=== PATIENT | female | born 1990 | race Caucasian/White ===

== ENCOUNTER 2019-08-13 09:09 | Emergency (ER) | payer OTHER, MEDICAID, SELFPAY ==
[2019-08-13 09:28] VITALS: BP 121/78; PULSE 87; RESP 16; TEMP 36.6; O2SAT 99
--- NOTE | 2019-08-13 10:05 | PC.NURSE ---
Pt reports concern over change in hormone levels. Suspects hormones to be cause of overwhelming anxiety.
--- NOTE | 2019-08-13 10:44 | ED.MEDCLEAR ---
HPI - Medical Clearance General Chief complaint: Medical Clearance Stated complaint: SI Time Seen by Provider: 08/13/19 10:37 History of Present Illness HPI Narrative: Patient is a 28-year-old female who presents with suicidal ideation over the past few days. Patient reports having a uterine ablation approximately 3 weeks ago and states I feel like I have been on an emotional roller coaster since . Patient reports going to [facility] office today for follow-up and was sent to the emergency department for SI. Patient reports she takes Xanax for anxiety. She reports she was on antidepressant, but she does not remember which one and she stopped taking approximately 6 months ago. She reports she has a appointment with PCP tomorrow to talk about restarting antidepressant, but has had thoughts of harming herself for the past few days. Patient denies plan to harm self. Patient reports a family history of suicide and reports her father committed suicide approximately 1 year ago, and her brother committed suicide 2 years ago. MD complaint: medical clearance requested and other (Suidical Ideation) Related Information Home Medications Medication Instructions Recorded Confirmed amitriptyline 25 mg PO DAILY 08/13/19 08/13/19 Allergies Allergy/AdvReac Type Severity Reaction Status Date / Time codeine Allergy Unknown HIVES, Verified 08/13/19 09:43 VOMITING hydrocodone Allergy Unknown HIVES, Verified 08/13/19 09:43 VOMITING Review of Systems Review of Systems: Narrative: CONSTITUTIONAL: Denies fever, chills, or sweats. EYES: Denies visual changes, redness, or discharge. ENT: Denies rhinorrhea, congestion, sore throat, or otalgia. CARDIOVASCULAR: Denies chest pain, palpitations, or edema. RESPIRATORY: Denies cough or dyspnea. GASTROINTESTINAL: Denies abdominal pain, nausea, vomiting, or diarrhea. GENITOURINARY: Denies dysuria or hematuria. SKIN: Denies rash or itching. MUSCULOSKELETAL: Denies back pain, joint pain, or myalgia. NEUROLOGIC: Denies headache, numbness, dizziness, or weakness. PSYCHIATRIC: Reports anxiety and depression. Reports suicidal thoughts over the past few days. [facility] Past Medical History Medical History (Updated 08/13/19 @ 14:44 by SYLVIA Vera) Anxiety (Acute) Depression (Acute) Migraines (Acute) Suicide attempt (Acute) Surgical History Surgical History (Updated 08/13/19 @ 10:52 by SYLVIA Vera) H/O tubal ligation (Acute) H/O: (Acute) Family History Family History (Updated 08/13/19 @ 10:54 by SYLVIA Vera) Father Suicide Sibling Suicide Social History Social History (Updated 08/13/19 @ 10:55 by SYLVIA Vera) Smoking status: Never smoker Alcohol intake: current Alcohol use details: socially Substance use: current Substance use type: marijuana Other substance usage details: Patient reports medical marijuana use Living arrangements: with family Gender identity (if verbalized by the patient): Female Exam Narrative: Exam Narrative: GENERAL: Well-appearing, well-nourished, and in no acute distress. HEAD: Normocephalic, atraumatic. EYES: EOMI. No redness or drainage. Conjunctiva are normal. ENT: Mucous membranes pink and moist. Nares clear. No rhinorrhea. TMs normal bilaterally. Throat normal. Uvula midline. NECK: AROM. Supple. No lymphadenopathy. CHEST: No respiratory distress. Clear to auscultation. HEART: Regular rate and rhythm. No murmur appreciated. Normal peripheral pulses. GI: Soft, nontender without rebound, or guarding. No distention. Bowel sounds normal in all quadrants. MUSCULOSKELETAL: No bony tenderness. EXTREMITIES: Normal range of motion. No edema. SKIN: Warm, dry, no rash. NEURO: No focal deficits. Alert and oriented x3. Gait steady. PSYCH: Normal affect. Mildly anxious, depression expressed, no active plan for suicide Course Course Emergency Course: Patient is medically cleared to be se
[2019-08-13 10:51] LABS: Alanine Aminotransferase 18 U/L (4-35); Albumin Level 4.7 g/dL (3.5-5.1); Alkaline Phosphatase 58 U/L (38-126); Aspartate Amino Transferase 25 U/L (14-36); Bilirubin,Total 0.6 mg/dL (0.2-1.3); Blood Urea Nitrogen 8 mg/dL (7-17); Calcium 9.5 mg/dL (8.4-10.2); Carbon Dioxide 29 mmol/L (22-30); Chloride 102 mmol/L (98-107); Estimated CRCL calculation 79 ml/min; Estimated Glomerular Filt Rate > 60; Glucose 96 mg/dL (65-105); Potassium 4.3 mmol/L (3.4-5.0); Sodium 140 mmol/L (137-145)
[2019-08-13 10:54] LABS: Ethanol < 10 mg/dL (<10)
[2019-08-13 11:25] LABS: Basophils Percent Auto 0.2 % (0.2-1.2); Eosinophils Absolute Auto 0.2 K/mm3 (0-0.3); Eosinophils Percent Auto 3.7 % (0-4.4); Hematocrit 41.1 % (37.0-47.0); Hemoglobin 14.5 g/dL (12.0-15.0); Lymphocytes Absolute Auto 1.39 K/mm3 (0.9-3.2); Lymphocytes Percent Auto 31.9 % (18.3-44.2); Mean Corpuscular HGB Conc 35.3 g/dl (32-36); Mean Corpuscular Hemoglobin 32.4 pg (26-34); Mean Corpuscular Volume 91.7 fl (80-100); Mean Platelet Volume 10.8 fl (7.4-10.4); Monocytes Absolute Auto 0.3 K/mm3 (0.1-0.6); Neutrophils Absolute Auto 2.5 K/mm3 (1.3-6.7); Neutrophils Percent Auto 58.2 % (45.5-73.1); Platelet Count Result 315 k/mm3 (150-375); Red Blood Count 4.48 M/mm3 (4.2-5.4); Red Cell Distribution Width 11.7 % (11.5-14.5); White Blood Count 4.4 K/mm3 (4.5-10.0)
[2019-08-13 11:43] LABS: Add Urine Microscopic? YES; Amphetamine Screen Urine Negative (Negative); Appearance Urine Turbid (Clear); Bacteria Urine Trace /hpf; Barbiturate Screen Urine Negative (Negative); Benzodiazepines Screen Urine Negative (Negative); Bilirubin Urine Negative (Negative); Blood Urine 1+ (Negative); Cannabinoid Screen Urine Positive (Negative); Cocaine Screen Urine Negative (Negative); Color Urine Red (Yellow); Glucose Urine UA Negative (Negative); Ketones Urine Negative (Negative); Leukocyte Esterase Ur Negative LEU/UL (Negative); Methadone Screen Urine Negative (Negative); Mucus Urine Heavy /lpf; Nitrate Urine Negative (Negative); Opiate Screen Urine Negative (Negative); Phencyclidine Screen Urine Negative (Negative); Protein Urine Negative (Negative); RBC Urine 0-2 /hpf (0-2); Specific Grav Ur 1.023 (1.001-1.035); Squamous Epithelial Cell Urine Many /hpf (Few); Urobilinogen Urine Negative mg/dL (<2.0); WBC Urine 0-3
--- NOTE | 2019-08-13 13:48 | PC.NURSE ---
Enginehouse Brakeman arash Summerfield in room with pt.
[2019-08-13 15:14] VITALS: BP 106/79; PULSE 90; RESP 16; TEMP 37.2; O2SAT 100
== END 2019-08-13 15:17 | disposition home or self-care (01) ==
PROVIDERS: Emergency Medicine; Emergency Provider Nurse Practitioner; PCP Nurse Practitioner Family
DX: F41.9 Anxiety disorder, unspecified (principal); F32.9 Major depressive disorder, single episode, unspecified
CPT/HCPCS: 36415; 80053; 80307; 81001; 81025; 84443; 85025; 99284

== ENCOUNTER 2020-04-21 10:25 | Emergency (ER) | payer OTHER, MEDICAID, SELFPAY ==
[2020-04-21 10:32] VITALS: BP 119/78; PULSE 81; RESP 16; TEMP 36.4; O2SAT 98
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
== END 2020-04-21 11:23 | disposition home or self-care (01) ==
PROVIDERS: Emergency Provider Nurse Practitioner Family; PCP Nurse Practitioner Family
DX: S91.011A Laceration without foreign body, right ankle, initial encounter (principal); W22.8XXA Striking against or struck by other objects, initial encounter
CPT/HCPCS: 12002; 99212; G0463

== ENCOUNTER 2020-05-27 16:25 | Emergency (ER) | payer OTHER, MEDICAID, SELFPAY ==
[2020-05-27 17:20] VITALS: BP 125/80; PULSE 101; RESP 16; TEMP 36.6; O2SAT 100
[2020-05-27 17:34] LABS: Basophils Absolute Auto 0.1 K/mm3 (0.0-0.1); Basophils Percent Auto 0.7 % (0.2-1.2); Eosinophils Absolute Auto 0.5 K/mm3 (0-0.3); Eosinophils Percent Auto 6.5 % (0-4.4); Hematocrit 39.8 % (37.0-47.0); Hemoglobin 14.1 g/dL (12.0-15.0); Immature Granulocyte Absolute 0.01 K/mm3 (0.00-0.031); Immature Granulocyte Percent A 0.1 % (0-0.5); Lymphocytes Absolute Auto 2.11 K/mm3 (0.9-3.2); Lymphocytes Percent Auto 29.1 % (18.3-44.2); Mean Corpuscular HGB Conc 35.4 g/dl (32-36); Mean Corpuscular Hemoglobin 32.8 pg (26-34); Mean Corpuscular Volume 92.6 fl (80-100); Mean Platelet Volume 10.3 fl (7.4-10.4); Monocytes Absolute Auto 0.4 K/mm3 (0.1-0.6); Monocytes Percent Auto 5.7 % (2.6-8.5); Neutrophils Absolute Auto 4.2 K/mm3 (1.3-6.7); Neutrophils Percent Auto 57.9 % (45.5-73.1); Platelet Count Result 263 k/mm3 (150-375); Red Cell Distribution Width 11.7 % (11.5-14.5); White Blood Count 7.2 K/mm3 (4.5-10.0)
[2020-05-27 17:36] LABS: Add Urine Microscopic? NO; Appearance Urine Clear (Clear); Bilirubin Urine Negative (Negative); Blood Urine Negative (Negative); Color Urine Yellow (Yellow); Glucose Urine UA Negative (Negative); Ketones Urine Negative (Negative); Leukocyte Esterase Ur Negative LEU/UL (Negative); Nitrate Urine Negative (Negative); Protein Urine Negative (Negative); Urobilinogen Urine Negative mg/dL (<2.0)
[2020-05-27 17:40] LABS: Specific Grav Ur 1.033 (1.001-1.035)
[2020-05-27 17:48] LABS: Alanine Aminotransferase 22 U/L (4-35); Albumin Level 4.2 g/dL (3.5-5.1); Alkaline Phosphatase 64 U/L (38-126); Anion Gap 8 mmol/L (8-16); Aspartate Amino Transferase 28 U/L (14-36); Bilirubin,Total 0.2 mg/dL (0.2-1.3); Blood Urea Nitrogen 12 mg/dL (7-17); Calcium 8.6 mg/dL (8.4-10.2); Carbon Dioxide 24 mmol/L (22-30); Chloride 106 mmol/L (98-107); Estimated CRCL calculation 78 ml/min; Estimated Glomerular Filt Rate > 60; Glucose 149 mg/dL (65-105); Lipase 76 U/L (23-300); Potassium 3.5 mmol/L (3.4-5.0); Sodium 138 mmol/L (137-145)
--- NOTE | 2020-05-27 21:38 | PC.NURSE ---
called pt to take back to room, no response.
--- NOTE | 2020-05-27 21:49 | PC.NURSE ---
Called for patient from waiting room at this time. No response. Patient is not in waiting room or restrooms at this time.
== END 2020-05-27 21:49 | disposition left against medical advice (07) ==
PROVIDERS: Emergency Provider Emergency Medicine; PCP Nurse Practitioner Family
DX: R11.2 Nausea with vomiting, unspecified (principal); R68.83 Chills (without fever); R19.7 Diarrhea, unspecified; R43.9 Unspecified disturbances of smell and taste; Z20.828 Contact with and (suspected) exposure to other viral communicable diseases
CPT/HCPCS: 36415; 80053; 81003; 81025; 83690; 85025; 99199

== ENCOUNTER 2021-02-03 10:54 | Outpatient (CLI) | payer OTHER, SELFPAY ==
--- NOTE | ~2021-02-03 | US_ITS ---
EXAMINATION: US right upper quadrant EXAM DATE: 02/03/2021 11:42 INDICATION: Right upper quadrant pain. TECHNIQUE: Multiple grayscale and Doppler images of the abdomen right upper quadrant were obtained (b y a technologist who performed the scan) and subsequently reviewed. There is no prior study for miguel reed. FINDINGS: The pancreatic head and body are normal in appearance. The pancreatic tail is not visualized. The l iver has normal echogenicity and contour. There are no focal liver lesions identified. There is no evidence of intrahepatic biliary duct dilation. Portal venous flow was seen in the hepatopedal, nor mal direction and has normal Doppler waveform. No right-sided hydronephrosis. Common bile duct measures 4 mm, which is normal. The gallbladder wall is normal in thickness, with ex pected amount of distention. No sonographic evidence of pericholecystic fluid. There is no cholelit hiases. Technologist noted right upper quadrant tenderness. IMPRESSION: Right upper quadrant tenderness. Sonographically normal gallbladder. Reviewed, dictated and finalized at location B. IMPRESSION: Right upper quadrant tenderness. Sonographically normal gallbladder .
== END 2021-02-03 10:55 | disposition home or self-care (01) ==
PROVIDERS: PCP Nurse Practitioner Family; Visit Provider Nurse Practitioner Family
DX: R10.11 Right upper quadrant pain (principal)
CPT/HCPCS: 76705

== ENCOUNTER → 2022-05-30 13:44 | Outpatient (CLI) | payer OTHER, SELFPAY ==
--- NOTE | ~2022-05-30 | US_ITS ---
EXAMINATION: US soft tissue head and neck DATE: 05/30/2022 14:05 INDICATION: LYMPHADENOPATHY . TECHNIQUE: Grayscale and Doppler ultrasound images of the neck soft tissues were obtained. COMPARISON: None. FINDINGS: The area of clinical concern on the right reveals an 8 mm lymph node, corresponding to the palpable abnormality. Additional lymph nodes are present in the right measuring up to 1.2 cm x 2.4 cm . Lymph nodes also visualized on the left measuring up to 6 mm. Note: none of the lymph nodes measure s were abnormal by size criteria in the true short axis diameter, or morphology. IMPRESSION: Palpable abnormality corresponds to a sonographically normal sized and appearing lymph node. Addition al bilateral normal sized cervical nodes are also identified. Reviewed, dictated and finalized at location K. IMPRESSION: Palpable abnormality corresponds to a sonographically normal sized and appearin g lymph node. Additional bilateral normal sized cervical nodes are also identif ied.
== END ==
PROVIDERS: PCP Nurse Practitioner Family; Visit Provider Nurse Practitioner Family
DX: R59.1 Generalized enlarged lymph nodes (principal)
CPT/HCPCS: 76536

== ENCOUNTER 2022-09-28 07:41 | Emergency (ER) | payer MEDICAID, SELFPAY ==
[2022-09-28] VITALS (13 sets, daily range): BP systolic 97–111; BP diastolic 67–83; PULSE 59–87; RESP 13–19; TEMP 36.4; O2SAT 95–100
--- NOTE | ~2022-09-28 | XR_ITS ---
EXAMINATION: XR chest 1V portable DATE: 09/28/2022 08:48 INDICATION: Chest pain and shortness of breath TECHNIQUE: frontal view of the chest was obtained. COMPARISON: None FINDINGS: The lungs are clear with no focal airspace opacities, pulmonary edema, pleural effusion or pneumothor ax. The cardiomediastinal silhouette is normal. Mild S-shaped curvature of the thoracic spine. IMPRESSION: 1. No acute cardiopulmonary disease. Reviewed, dictated and finalized at location A. E MACHINE OPERATOR
--- NOTE | 2022-09-28 07:48 | ECG_ITS ---
Measurements Intervals [place] Rate: 60 P: 1 CT: 133 QRS: 20 QRSD: 109 T: 47 QT: 393 QTc: 396 Interpretive Statements SINUS RHYTHM WITH SINUS ARRHYTHMIA INCOMPLETE RIGHT BUNDLE BRANCH BLOCK BORDERLINE ECG NO PREVIOUS ECG AVAILABLE FOR COMPARISON Electronically Signed On 09-28-2022 14:48:20 BLUE PRINT CONTROL CLERK by Constantine Dozier M.D.
[2022-09-28 08:07] LABS: Basophils Percent Auto 0.8 % (0.2-1.2); Eosinophils Absolute Auto 0.4 K/mm3 (0-0.3); Eosinophils Percent Auto 8.4 % (0-4.4); Hematocrit 42.8 % (37.0-47.0); Hemoglobin 14.7 g/dL (12.0-15.0); Immature Granulocyte Absolute 0.02 K/mm3 (0.00-0.031); Immature Granulocyte Percent A 0.4 % (0-0.5); Lymphocytes Absolute Auto 1.37 K/mm3 (0.9-3.2); Lymphocytes Percent Auto 27.5 % (18.3-44.2); Mean Corpuscular HGB Conc 34.3 g/dl (32-36); Mean Corpuscular Hemoglobin 31.6 pg (26-34); Mean Platelet Volume 9.6 fl (7.4-10.4); Monocytes Absolute Auto 0.3 K/mm3 (0.1-0.6); Monocytes Percent Auto 6.6 % (2.6-8.5); Neutrophils Absolute Auto 2.8 K/mm3 (1.3-6.7); Neutrophils Percent Auto 56.3 % (45.5-73.1); Platelet Count Result 246 k/mm3 (150-375); Red Blood Count 4.65 M/mm3 (4.2-5.4); Red Cell Distribution Width 11.8 % (11.5-14.5)
[2022-09-28] MEDS: KETOROLAC 15 MG/ML VIAL (*BKC) IV PUSH (08:21)
[2022-09-28 08:27] LABS: Alanine Aminotransferase 22 U/L (6-35); Albumin Level 4.3 g/dL (3.5-5.1); Alkaline Phosphatase 59 U/L (38-126); Anion Gap 6 mmol/L (8-16); Aspartate Amino Transferase 23 U/L (14-36); Bilirubin,Total 0.3 mg/dL (0.2-1.3); Blood Urea Nitrogen 10 mg/dL (7-17); Calcium 8.3 mg/dL (8.4-10.2); Carbon Dioxide 28 mmol/L (22-30); Chloride 106 mmol/L (98-107); Estimated CRCL calculation 77 ml/min; Estimated Glomerular Filt Rate > 60; Glucose 106 mg/dL (65-110); Sodium 140 mmol/L (137-145)
[2022-09-28 08:38] LABS: Troponin I < 0.012 ng/mL (0.000-0.034)
[2022-09-28 08:40] LABS: D Dimer 0.42 ug/mL (<0.48)
--- NOTE | 2022-09-28 09:48 | PC.NURSE ---
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
--- NOTE | 2022-09-28 09:54 | ED.CHESTPAIN ---
HPI - Chest Pain General Chief Complaint: Chest Pain Stated Complaint: CP into shoulder blades and SOB Time Seen by Provider: 09/28/22 07:57 Source: patient Mode of arrival: ambulatory Limitations: no limitations History of Present Illness HPI narrative: 31-year-old otherwise healthy here with complaints of midsternal chest pain radiating to her back she states that she woke up with the pain. She denies any shortness of breath, cough or fever. No previous history of coronary artery disease she states she is under tremendous amount of stress at this time. She denies any nausea, vomiting or abdominal pain. complaint: chest pain Onset (ago): hour(s) (2) Timing of current episode: constant and still present Onset: during rest Pain location: substernal Pain radiation: back Severity: moderate Quality: aching Relieving factors: nothing Exacerbating factors: nothing Context: recent illness Treatment prior to arrival: none Risk Factors Coronary artery disease risk factors: none Thoracic aortic dissection risk factors: none Related Data Home Medications Medication Instructions Recorded Confirmed venlafaxine 75 mg capsule,extended 150 mg PO DAILY 09/29/19 04/21/20 release 24 hr aripiprazole 5 mg tablet (Abilify) 5 mg PO DAILY 04/21/20 04/21/20 Allergies Allergy/AdvReac Type Severity Reaction Status Date / Time codeine Allergy Unknown HIVES, Verified 04/21/20 10:50 VOMITING hydrocodone Allergy Unknown HIVES, Verified 04/21/20 10:50 VOMITING amoxicillin Allergy Unconscious Verified 09/28/22 07:51 Review of Systems Review of Systems: All systems reviewed & are unremarkable except as noted in HPI and below Constitutional: Constitutional: Reports no additional constitutional complaints Eyes: Eyes: Reports no additional eye complaints ENT: Reports system reviewed and no additional complaints, except as documented Cardiovascular: Cardiovascular: Reports as per HPI Respiratory: Respiratory: Reports no additional respiratory complaints Gastrointestinal: Gastrointestinal: Reports no additional gastrointestinal complaints Musculoskeletal: Musculoskeletal: Reports no additional musculoskeletal complaints Neurologic: Reports system reviewed and no additional complaints, except as documented Psychiatric: Psychiatric: Reports no additional psychiatric complaints Endocrine: Endocrine: Reports no additional endocrine complaints Hematologic/Lymphatic: Hematologic/Lymphatic: Reports no additional hematologic/lymphatic complaints PMFSH Past Medical History Medical History (Updated 09/28/22 @ 10:05 by Kaleb Gallegos MD) Anxiety Depression Migraines Suicide attempt Patient reports suicide attempt as teen Surgical History Surgical History H/O tubal ligation H/O: Family History Family History Father Suicide Sibling Suicide Social History Social History Smoking status: Never smoker Alcohol intake: current Alcohol use details: socially Substance use: current Substance use type: marijuana Other substance usage details: Patient reports medical marijuana use Gender identity (if verbalized by the patient): Female Exam Narrative: GENERAL: Well-appearing, well-nourished, and in no acute distress. HEAD: Normocephalic, atraumatic. EYES: PERRLA and EOMI. NECK: Supple. CHEST: Clear to auscultation. No respiratory distress. HEART: Regular rate and rhythm. No murmur heard. Normal peripheral pulses. ABDOMEN: Soft, nontender, nondistended, normal active bowel sounds. EXTREMITIES: Normal range of motion. No edema. SKIN: Warm, dry, no rash. NEURO: No focal deficits. Alert and oriented x3. PSYCH: Normal mood and affect. Course Course Emergency Course: 31-year-old otherwise healthy otherwise healthy here with
== END 2022-09-28 10:26 | disposition home or self-care (01) ==
PROVIDERS: Emergency Provider Family Medicine; PCP Nurse Practitioner Family
DX: R07.89 Other chest pain (principal); F41.9 Anxiety disorder, unspecified; F32.A Depression, unspecified; I45.10 Unspecified right bundle-branch block
CPT/HCPCS: 36415; 71045; 80053; 84484; 85025; 85380; 93005; 96374; 99284; J1885